=== PATIENT | male | born 1970 | race Caucasian/White ===

== ENCOUNTER → 2016-10-10 | Outpatient (CLI) | payer BC ==
--- NOTE | ~2016-10-10 | US6 ---
[facility] A Service of [facility] RADIOLOGY TEXT RESULTS PATIENT: FARA LEON LOCATION: [facility] : 70 UNIT #: [id number] AGE: [address]: Moo Henry MD SEX: M ORDER DR: [id number] [address] [address] [id number] MR#: [id number] #: [id number] NAME: FARA LEON : 1970 SEX: M STUDY DATE/TIME: 10/10/2016 8:32 UNIT: [facility] ROOM: STUDY DESCRIPTION: US Abdominal Limited Attending Physician: Moo Henry M.D. Referring Physician: Moo Henry M.D. Ordering Physician: Moo Henry M.D. Primary Care Physician: Moo Henry M.D. MEDICAL IMAGING REPORT This report is preliminary unless electronic signature is present. EXAM Right upper quadrant ultrasound 10/10/2016 HISTORY Blood work done 1 week ago. Elevated liver function tests. Real-time ultrasonography of the right upper quadrant performed. COMPARISON STUDIES No prior studies for comparison. FINDINGS Very limited views of pancreas grossly unremarkable but much of the pancreas is obscured by bowel gas artifact. The liver shows generally increased parenchymal echogenicity, with attenuation of sonographic beam posteriorly. Appearance suggests fatty infiltration. No focal hepatic parenchymal abnormality is seen but visualization of hepatic parenchyma is somewhat limited. Liver measures about 14.36 cm in greatest craniocaudal extent. Portal vein is patent with normal direction of flow. No intra or extrahepatic biliary ductal dilatation. Common duct measures 2.9 mm in diameter. The gallbladder is normal in volume with no gallstone seen. No pericholecystic fluid or gallbladder wall thickening. Gallbladder wall measures about 1.5 mm in thickness. The right kidney measures 10.14 cm in greatest length. No hydronephrosis. There is an interpolar region somewhat ovoid echogenic focus measuring 9.1 mm x 6 mm x 11.1 mm. No posterior sonographic shadowing. Etiology unclear. This may represent volume averaging through normal intrarenal fat. Small lipoma is a consideration. Other solid nodules not excluded. In the absence of prior studies clarifying this finding, multiphase contrast-enhanced CT kidneys would be recommended. No perinephric fluid collection. IMPRESSION 1. Diffuse fatty infiltration of the liver without suspicious focal [facility] A Service of [facility] RADIOLOGY TEXT RESULTS PATIENT: FARA LEON LOCATION: [facility] : 70 UNIT #: [id number] AGE: [address]: Moo Henry MD SEX: M ORDER DR: abnormality seen. Assessment of hepatic parenchyma limited secondary to fatty infiltration and resulting sonographic beam attenuation. 2. Gallbladder normal. No biliary ductal dilatation. 3. In the interpolar region of the right kidney there is a round ovoid echogenic focus measuring up to 11.1 mm in diameter. No posterior shadowing to clearly indicate calculus or parenchymal calcification. The possibility of lipoma or some other form of solid nodule should be considered. Further characterization and absence of prior studies with multiphase contrast-enhanced CT recommended. The right kidney is otherwise unremarkable. 4. Visualized pancreas unremarkable but much of pancreas obscured by bowel gas artifact. Pancreas could best be further evaluated with CT examination. Dictated by... Hubert Luz M.D. THIS IS AN ELECTRONICALLY VERIFIED REPORT Hubert Luz M.D. at 10/11/2016 4:18 PM Jerry TD: 10/10/2016 18:09 JOB #: [id number] MEDICAL IMAGING REPORT
== END | disposition home or self-care (01) ==
LOC: SGUS 08:08
DX: R79.89 Other specified abnormal findings of blood chemistry (principal); E78.5 Hyperlipidemia, unspecified; K76.0 Fatty (change of) liver, not elsewhere classified
CPT/HCPCS: 76705